=== PATIENT | female | born 1975 | race Two or more races ===

== ENCOUNTER 2017-09-25 08:00 | Outpatient (CLI) | payer SELFPAY | END 2017-09-25 08:01 | disposition home or self-care (01) | LOC: LAB.N 08:00 | PROVIDERS: ATTEND Nurse Practitioner Gerontology | DX: L65.9 Nonscarring hair loss, unspecified (principal) | CPT/HCPCS: 36415; 84443 ==

== ENCOUNTER 2017-10-25 15:00 | Outpatient (CLI) | payer SELFPAY | END 2017-10-25 15:30 | disposition home or self-care (01) | LOC: RT.N 15:00 | PROVIDERS: ATTEND Nurse Practitioner Gerontology | DX: R07.9 Chest pain, unspecified (principal) | CPT/HCPCS: 93005 ==

== ENCOUNTER 2021-04-03 18:20 | Outpatient (CLI) | payer SELFPAY ==
--- NOTE | 2021-04-04 09:33 | XRAY Report ---
PROCEDURE: Knee 2 View RT INDICATIONS: R KNEE PX TECHNIQUE: 2 views of the right knee(s) were acquired. COMPARISON: None. FINDINGS: Bones: No fractures or dislocations. No suspicious bony lesions. Mild tricompartmental osteoarthrit is. Soft tissues: No joint effusion. No suspicious soft tissue calcifications. IMPRESSION: Mild tricompartmental osteoarthritis. Reviewed by: Ami Musa MD, PhD on 04/04/2021 9:32 AM PDT Approved by: Ami Musa MD, PhD on 04/04/2021 9:32 AM PDT Station ID: [id number]
== END 2021-04-03 23:59 | disposition home or self-care (01) ==
LOC: DI.N 18:20
PROVIDERS: ATTEND Nurse Practitioner
DX: M79.606 Pain in leg, unspecified (principal); M17.11 Unilateral primary osteoarthritis, right knee